=== PATIENT | male | born 1990 | race African-American/Black ===

== ENCOUNTER → 2024-03-30 | Emergency (ER) | payer BC, MEDICAID ==
[~2024-03-30] VITALS: Ht 185.4 cm; Wt 87.0 kg
[~2024-03-30] MED LIST: DIPHENHYDRAMINE 50MG/ML VIAL IM ONE; HALOPERIDOL LACTATE 5MG/ML VIAL IM ONE; LORAZEPAM 2MG/ML INJ IM ONE
[2024-03-30 10:18] LABS: BASOPHILS % 0.7 % (0.0-2.0); EOSINOPHILS % 4.1 % (0.0-5.0); HEMOGLOBIN. 12.7 g/dL (14.0-18.0); LYMPHOCYTES % 28.2 % (20.0-50.0); MEAN CORPUSCULAR HEMOGLOBIN 29.3 pg (28.0-32.0); MEAN CORPUSCULAR HGB CONC 32.5 g/dL (31.0-37.0); MEAN CORPUSCULAR VOLUME 90.3 fL (80.0-94.0); MEAN PLATELET VOLUME 10.2 fl (7.4-10.4); MONOCYTES % 9.5 % (2.0-8.0); NEUTROPHILS % 57.5 % (40.0-76.0); PLATELET 187 x1000/uL (130-400); RED BLOOD CELL COUNT 4.32 mill/uL (4.7-6.1); RED CELL DISTRIBUTION WIDTH 13.5 % (11.6-14.6); WHITE BLOOD COUNT 6.5 x1000/uL (4.5-11.0)
[2024-03-30 10:34] LABS: CHLORIDE 107 mEq/L (98-107); POTASSIUM 3.5 mEq/L (3.5-5.1); SODIUM 138 mEq/L (136-145)
[2024-03-30 10:35] LABS: CARBON DIOXIDE 24 mEq/L (21-32)
[2024-03-30 10:36] LABS: CALCIUM 9.3 mg/dL (8.7-10.4)
[2024-03-30 10:40] LABS: CREATININE 0.9 mg/dL (0.6-1.3); GLUCOSE 108 mg/dL (70-105); UREA NITROGEN BLOOD 8 mg/dL (9-23)
[2024-03-30 10:42] LABS: ACETAMINOPHEN < 2 ug/mL (10-30)
[2024-03-30 10:45] LABS: THYROID STIMULATING HORMONE 1.48 uIU/mL (0.55-4.78)
[2024-03-30 11:18] LABS: ETHANOL BLOOD < 10 mg/dL (<10)
[2024-03-30] MEDS: LORAZEPAM 2MG/ML INJ IM ONE (14:20)
[2024-03-30] MEDS: HALOPERIDOL LACTATE 5MG/ML VIAL IM ONE (14:20)
[2024-03-31] MEDS: DIPHENHYDRAMINE 50MG/ML VIAL IM ONE ×2 (00:51→12:00)
[2024-03-31] MEDS: LORAZEPAM 2MG/ML INJ IM ONE ×2 (00:51→12:00)
[2024-03-31] MEDS: HALOPERIDOL LACTATE 5MG/ML VIAL IM ONE ×2 (00:51→12:00)
[2024-03-31] MEDS: DIPHENHYDRAMINE 50MG/ML VIAL IM PRN (04:41)
[2024-03-31 13:19] LABS: CLARITY URINE CLEAR (CLEAR); COLOR URINE YELLOW (YELLOW); GLUCOSE URINE NEGATIVE (NEGATIVE); KETONES URINE NEGATIVE (NEGATIVE); LEUKOCYTE ESTERASE URINE NEGATIVE (NEGATIVE); NITRITE URINE NEGATIVE (NEGATIVE); OCCULT BLOOD URINE NEGATIVE (NEGATIVE); PROTEIN URINE NEGATIVE (NEGATIVE); SPECIFIC GRAVITY URINE 1.014 (1.005-1.030); UROBILINOGEN URINE 0.2 E.U./dL (0.2-1.0)
[2024-03-31 13:35] LABS: *AMPHETAMINES SCREEN URINE NEGATIVE (NEGATIVE); *BARBITURATES SCREEN URINE NEGATIVE (NEGATIVE); *BENZODIAZEPINES SCREEN URINE PRESUMPTIVE POSITIVE (NEGATIVE); *COCAINE SCREEN URINE NEGATIVE (NEGATIVE)
[2024-03-31 13:36] LABS: CANNABINOID URINE SCREEN NEGATIVE (NEGATIVE); ECSTASY MDMA SCREEN URINE NEGATIVE (NEGATIVE); METHADONE URINE SCREEN NEGATIVE (NEGATIVE); OPIATES URINE SCREEN NEGATIVE (NEGATIVE); PHENCYCLIDINE URINE SCREEN NEGATIVE (NEGATIVE)
[2024-03-31] MEDS: DIPHENHYDRAMINE 50MG/ML VIAL IM STA (15:15)
[2024-03-31] MEDS: HALOPERIDOL LACTATE 5MG/ML VIAL IM STA (15:15)
[2024-03-31] MEDS: LORAZEPAM 2MG/ML INJ IM STA (15:15)
[2024-03-31 19:00] VITALS: O2SAT 99
[2024-03-31] MEDS: LORAZEPAM 2MG/ML INJ IM NR (21:57)
[2024-03-31] MEDS: DIPHENHYDRAMINE 50MG/ML VIAL IM NR (21:57)
[2024-03-31] MEDS: HALOPERIDOL LACTATE 5MG/ML VIAL IM NR (21:57)
[2024-04-01] MEDS: OLANZAPINE 10 MG/VIAL IM ONE (07:45)
[2024-04-01] MEDS: LORAZEPAM 2MG/ML INJ IM ONE (07:45)
[2024-04-01 12:08] VITALS: BP 116/69; PULSE 65; RESP 16; TEMP 36.61404; O2SAT 100
== END ==
LOC: ER 09:35 → EDBD 09:35
DX: R46.2 Strange and inexplicable behavior (principal); R41.82 Altered mental status, unspecified; Z20.822 Contact with and (suspected) exposure to COVID-19
CPT/HCPCS: 80305; 80048; 81003; 80307; 80329; 80320; 84443; 85025; 36415; 70450; 93005; 96372; 99291; 87426; J1630; J2060; J1200; G0480